=== PATIENT | female | born 1985 | race Caucasian/White ===

== ENCOUNTER 2023-08-15 06:51 | Day surgery (SDC) | payer OTHER ==
[2023-08-10 11:55] LABS: BASOPHILS # (AUTO) 0.09 K/uL (0.00-0.20); BASOPHILS % (AUTO) 0.7 % (0.0-5.0); EOSINOPHILS # (AUTO) 0.27 K/uL (0.00-0.70); EOSINOPHILS % (AUTO) 2.2 % (0.0-8.0); HEMATOCRIT 41.2 % (36-48); IMMATURE GRANULOCYTE ABSOLUTE 0.05 K/uL (0-1); LYMPHOCYTES # (AUTO) 2.8 K/uL (1.0-4.8); LYMPHOCYTES % (AUTO) 22.5 % (21.0-51.0); MEAN CORPUSCULAR HEMOGLOBIN 27.2 pg (27.0-33.0); MEAN CORPUSCULAR HGB CONC 33.5 g/dL (32.0-36.0); MEAN CORPUSCULAR VOLUME 81.3 fL (79-99); MONOCYTES # (AUTO) 0.8 K/uL (0.1-1.0); MONOCYTES % (AUTO) 6.6 % (3.0-13.0); NEUTROPHILS # (AUTO) 8.3 K/uL (1.8-7.7); NEUTROPHILS % (AUTO) 67.6 % (40.0-77.0); PLATELET COUNT (AUTO) 347 K/uL (130-400); RED BLOOD CELL COUNT(AUTO) 5.07 MIL/uL (4.00-5.50); RED CELL DISTRIBUTION WIDTH 13.7 % (11.0-15.5); WHITE BLOOD COUNT (AUTO) 12.3 K/uL (4.8-10.8)
[2023-08-10 12:16] LABS: INR 0.94 (0.85-1.15); PROTHROMBIN TIME 11.1 SEC (9.6-11.6)
[2023-08-10 12:17] LABS: PARTIAL THROMBOPLASTIN TIME 33.2 SEC (26.3-35.5)
[2023-08-10 12:31] LABS: ALBUMIN 3.8 g/dL (3.5-5.0); BILIRUBIN,TOTAL 0.7 mg/dL (0.2-1.0); CREATININE 0.7 mg/dL (0.5-1.0); POTASSIUM 4.2 mmol/L (3.5-5.1); TOTAL PROTEIN, SERUM 7.6 g/dL (6.0-8.3)
[2023-08-10 12:34] VITALS: BP 187/93; PULSE 73; RESP 18
[~2023-08-15] VITALS: Ht 177.8 cm; Wt 139.9 kg
[2023-08-15] VITALS (21 sets, daily range): BP systolic 113–167; BP diastolic 71–91; PULSE 82–100; RESP 14–20
[~2023-08-15 06:51] MED LIST: DIPH25CA85 PO; FLUO40CA49 PO; MELA1TAB73 PO; METF-444 PO; NORE5TAB7 PO; SUMA100T16 PO
[2023-08-15] MEDS ORDERED: DEXAMETHASONE SOD PHOSPHATE 4 MG/ML 1ML VIAL ONE (07:11)
[2023-08-15] MEDS ORDERED: CEFAZOLIN SODIUM 2 GM VIAL ONE (07:11)
[2023-08-15] MEDS ORDERED: METRONIDAZOLE 500MG/100ML BAG 100 ML ONE (07:12)
[2023-08-15] MEDS ORDERED: 0.9%NACL 1000ML 1,000 ML IV ONE (07:18)
[2023-08-15] MEDS: PHENAZOPYRIDINE HCL 200 MG TABLET ONE (07:19)
[2023-08-15] MEDS: SCOPOLAMINE HYDROBROMIDE 1 EACH ADH..PATCH TD ONE (07:20)
[2023-08-15] MEDS ORDERED: BUPIVACAINE/PF 0.25% 30ML VIAL IJ ONE (07:31)
[2023-08-15] MEDS ORDERED: MIDAZOLAM HCL 1 MG/ML 2ML VIAL ONE (07:56)
[2023-08-15] MEDS ORDERED: DEXMEDETOMIDINE HCL 200 MCG/2 ML VIAL IV ONE (07:56)
[2023-08-15] MEDS ORDERED: MELA10TA2 PO (07:57)
[2023-08-15] MEDS ORDERED: VENL-62 PO (07:57)
[2023-08-15] MEDS ORDERED: MAGNESIUM SULFATE 1 GM/2 ML VIAL ONE (07:58)
[2023-08-15] MEDS ORDERED: KETAMINE 50MG/ML SYRINGE 50 MG/ML DISP.SYRIN ONE (07:58)
[2023-08-15] MEDS ORDERED: LIDOCAINE PF 100MG/5ML (2%) SYRINGE 5ML ONE (08:00)
[2023-08-15] MEDS ORDERED: FENTANYL CITRATE PF 50 MCG/1 ML 2ML VIAL ONE ×2 (08:01→09:14)
[2023-08-15] MEDS ORDERED: ROCURONIUM BROMIDE 10MG/1ML 5ML VL ONE ×2 (08:01→08:50)
[2023-08-15] MEDS ORDERED: PROPOFOL 10 MG/ML 20ML VIAL IV ONE (08:01)
[2023-08-15] MEDS: BUPIVACAINE/PF 0.25% 30ML VIAL IJ ONE (09:03)
[2023-08-15] MEDS: BUPIVACAINE/EPI/PF 0.25% 30ML VIAL IJ ONE (09:03)
[2023-08-15] MEDS ORDERED: GLYCOPYRROLATE 0.2 MG/ML 5 ML VIAL ONE (09:17)
[2023-08-15] MEDS ORDERED: SUGAMMADEX SODIUM 200 MG/2 ML VIAL IV ONE (10:04)
[2023-08-15] MEDS ORDERED: FENTANYL CITRATE PF 50 MCG/1 ML 5ML AMP IV ONE (10:16)
[2023-08-15] MEDS ORDERED: KETOROLAC 15MG/ML VIAL (15MG/ML) ONE (10:37)
[2023-08-15] MEDS ORDERED: ONDANSETRON 4MG INJ ONE (10:49)
[2023-08-15] MEDS: 0.9%NACL 1000ML 1,000 ML IV ONE (11:37)
[2023-08-15] MEDS: DEXAMETHASONE SOD PHOSPHATE 4 MG/ML 1ML VIAL IV ONE (11:37)
[2023-08-15] MEDS ORDERED: MORPHINE 5 MG/ML VIAL (5MG OR GREATER DOSE) IM ONE (12:30)
[2023-08-15] MEDS: ONDANSETRON 4MG INJ IVP ONE (12:30)
[2023-08-15] MEDS: ACETAMINOPHEN 500 MG TABLET PO ONE (12:31)
[2023-08-15] MEDS: MORPHINE 10MG VIAL IM ONE (12:37)
== END 2023-08-15 14:30 | disposition home or self-care (01) ==
LOC: DAH 06:51
PROVIDERS: ATTEND Obstetrics & Gynecology
DX: N93.9 Abnormal uterine and vaginal bleeding, unspecified (principal); N99.85 Post endometrial ablation syndrome; N72 Inflammatory disease of cervix uteri; D25.9 Leiomyoma of uterus, unspecified; F41.9 Anxiety disorder, unspecified; F32.A Depression, unspecified; E66.01 Morbid (severe) obesity due to excess calories; J45.909 Unspecified asthma, uncomplicated; E11.9 Type 2 diabetes mellitus without complications; Z79.899 Other long term (current) drug therapy; Z79.01 Long term (current) use of anticoagulants; Z98.51 Tubal ligation status; Z98.890 Other specified postprocedural states; Z82.49 Family history of ischemic heart disease and other diseases of the circulatory system; Z83.3 Family history of diabetes mellitus; Z82.0 Family history of epilepsy and other diseases of the nervous system; Z83.42 Family history of familial hypercholesterolemia; Z90.89 Acquired absence of other organs; Z68.41 Body mass index [BMI] 40.0-44.9, adult
CPT/HCPCS: 58573; S2900; 36415; 80053; 81025; 82948; 84703; 85025; 85610; 85730; 86850; 86900; 86901; 88307; A4344; J1100; J1885; J2001; J2250; J2270; J2405; J2704; J3010; J3475; J3490; J7030; A4213; A4215; A4216; A4221; A4222; A4223; A4510; A4554; A4600; A4649; A4657; A4663; A6260; G0168; J0665; J0690